=== PATIENT | female | born 1980 | race Caucasian/White ===

== ENCOUNTER 2017-12-11 14:16 | Emergency (ER) | payer MEDICAID ==
[~2017-12-11] VITALS: Ht 162.6 cm; Wt 80.0 kg
[2017-12-11] MEDS ORDERED: SODIUM CHLORIDE 0.9% 1,000 ML IV ONE (16:00)
[2017-12-11 16:19] LABS: CHLORIDE 106 mEq/L (98-107)
[2017-12-11 16:22] LABS: BASOPHILS % 0.7 % (0.0-2.0); EOSINOPHILS % 1.6 % (0.0-5.0); HEMATOCRIT. 35.3 % (36.0-48.0); HEMOGLOBIN. 11.7 g/dL (12.0-16.0); LYMPHOCYTES % 23.2 % (20.0-50.0); MEAN CORPUSCULAR VOLUME 75.4 fL (81.0-99.0); MEAN PLATELET VOLUME 8.1 fl (7.4-10.4); MONOCYTES % 7.1 % (2.0-8.0); NEUTROPHILS % 67.4 % (40.0-76.0); PARTIAL THROMBOPLASTIN TIME 27.3 sec (23.4-31.0); PLATELET 275 x1000/uL (130-400); PROTHROMBIN TIME 10.4 sec (9.4-11.6); RED BLOOD CELL COUNT 4.68 mill/uL (4.2-5.4); RED CELL DISTRIBUTION WIDTH 16.8 % (11.6-14.6)
[2017-12-11 16:35] LABS: HCG SCREEN NEGATIVE
[2017-12-11] MEDS ORDERED: KETOROLAC 30MG/ML VIAL IV ONE (17:15)
[2017-12-11 18:44] LABS: CLARITY URINE CLEAR (CLEAR); COLOR URINE YELLOW (YELLOW); KETONES URINE NEGATIVE (NEGATIVE); LEUKOCYTE ESTERASE URINE NEGATIVE (NEGATIVE); NITRITE URINE NEGATIVE (NEGATIVE); OCCULT BLOOD URINE NEGATIVE (NEGATIVE); PROTEIN URINE NEGATIVE (NEGATIVE); SPECIFIC GRAVITY URINE 1.021 (1.005-1.030); UROBILINOGEN URINE 0.2 E.U./dL (0.2-1.0)
[2017-12-11] MEDS ORDERED: ONDANSETRON HCL 4MG/2ML VIAL IV ONE (18:45)
[2017-12-11 19:15] VITALS: BP 117/69
== END 2017-12-11 19:42 | disposition home or self-care (01) ==
LOC: ER 17:07
DX: N93.8 Other specified abnormal uterine and vaginal bleeding (principal); D64.9 Anemia, unspecified; Z98.890 Other specified postprocedural states
CPT/HCPCS: 36415; 80053; 81003; 83690; 84703; 85025; 85610; 85730; 86850; 86900; 86901; 96361; 96374; 96375; 99284; J1885; J2405; J7030